=== PATIENT | female | born 1960 | race African-American/Black ===

== ENCOUNTER 2020-07-08 13:40 | Emergency (ER) | payer OTHER, MEDICAID ==
[~2020-07-08] VITALS: Ht 167.6 cm; Wt 68.0 kg
[~2020-07-08 13:40] MED LIST: ALBU17AE26 INH; AMLO2.5T2 PO; CARI350T28 PO; DESL5TAB PO; DOCU50CA11 PO; DUONEB3 ML INH; HYDR-3927 PO; LEVO100T PO; LEVO500T2 PO; MED4 GT; QUET50TA PO
[2020-07-08] MEDS ORDERED: ACETAMINOPHEN 325MG TABLET PO ONE (14:45)
[2020-07-08] MEDS ORDERED: KETOROLAC 15MG/ML VIAL IV NR (14:45)
[2020-07-08 14:47] LABS: EOSINOPHILS % 2.6 % (0.0-5.0); HEMATOCRIT. 21.5 % (36.0-48.0); LYMPHOCYTES % 26.8 % (20.0-50.0); MEAN CORPUSCULAR HEMOGLOBIN 27.5 pg (28.0-32.0); MEAN CORPUSCULAR VOLUME 84.9 fL (81.0-99.0); MONOCYTES % 9.1 % (2.0-8.0); NEUTROPHILS % 60.5 % (40.0-76.0); PLATELET 332 x1000/uL (130-400); RED BLOOD CELL COUNT 2.53 mill/uL (4.2-5.4); RED CELL DISTRIBUTION WIDTH 15.9 % (11.6-14.6)
[2020-07-08 14:55] LABS: CHLORIDE 109 mEq/L (98-107)
[2020-07-08] MEDS ORDERED: MORPHINE SULFATE 4 MG/ML CPJ (NOT FOR IM USE) IV ONE (16:00)
[2020-07-08] MEDS ORDERED: SODIUM CHLORIDE 0.9% 500 ML IV ONE (16:30)
[2020-07-08] MEDS ORDERED: IOHEXOL-350 100 ML BOTTLE ONE (17:35)
[2020-07-08] MEDS ORDERED: NITROGLYCERIN 0.4MG TABLET SL SL PRN (20:30)
[2020-07-08 20:44] VITALS: BP 117/53
== END 2020-07-08 20:49 | disposition short-term general hospital (02) ==
LOC: ER 13:48 → CANBEDREQ 07-09 07:14
DX: S92.492A Other fracture of left great toe, initial encounter for closed fracture (principal); R07.89 Other chest pain; D64.9 Anemia, unspecified; I10 Essential (primary) hypertension; E05.90 Thyrotoxicosis, unspecified without thyrotoxic crisis or storm; Z79.899 Other long term (current) drug therapy; Z88.0 Allergy status to penicillin; X58.XXXA Exposure to other specified factors, initial encounter; Y93.89 Activity, other specified; Y92.89 Other specified places as the place of occurrence of the external cause; Y99.8 Other external cause status
CPT/HCPCS: 36415; 71045; 71275; 73630; 80053; 82962; 83880; 84484; 85025; 85379; 93005; 93970; 96361; 96374; 96375; 99285; J1885; J2270; Q9967